=== PATIENT | female | born 2000 | race Caucasian/White ===

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

== ENCOUNTER 2024-07-25 23:46 | Emergency (ER) | payer MEDICAID, OTHER ==
[~2024-07-25] VITALS: Ht 157.5 cm; Wt 91.6 kg
[2024-07-26] MEDS ORDERED: IBUPROFEN 600 MG TABLET ONE (00:11)
[2024-07-26] MEDS: IBUPROFEN 600 MG TABLET PO ONE (00:11)
[2024-07-26 03:05] VITALS: BP 132/80; TEMP 98.4; O2SAT 100
== END 2024-07-26 03:05 | disposition home or self-care (01) ==
LOC: ER 23:53
DX: M25.531 Pain in right wrist (principal)
CPT/HCPCS: 73110